=== PATIENT | female | born 1990 | race Caucasian/White ===

== ENCOUNTER 2017-01-23 10:30 | Emergency (ER) | payer BC ==
[~2017-01-23] VITALS: Ht 157.5 cm; Wt 52.5 kg
[2017-01-23 10:32] VITALS: Ht 157.5 cm; Wt 52.5 kg
[2017-01-23] MEDS ORDERED: ONDANSETRON 4 MG INJ IV STA (11:08)
[2017-01-23] MEDS ORDERED: SOD CHLORIDE 0.9% 1,000 ML IV STA (11:08)
--- NOTE | 2017-01-23 11:56 | ERD ---
ER Documentation Chief Complaint Chief Complaint VOMITING X 10 HRS HPI 27-year-old female comes in with a 10 hour history nausea, vomiting, diarrhea and cramping abdominal pain. Patient describes up to 10 episodes of nausea vomiting that was nonbloody nonbilious. She reports diffuse cramping abdominal pain with diarrhea. She took Tylenol for the pain, and does not report any fevers. There is no history of travel with this. ROS All systems reviewed and are negative except as per history of present illness. Medications Home Meds Active Scripts Famotidine* (Famotidine*) 20 Mg Tablet, 20 MG PO BID, #10 TAB Prov:ALYSE DOMINIQUE PA-C 01/23/17 Dicyclomine Hcl* (Bentyl*) 10 Mg Capsule, 10 MG PO QID, #15 CAP Prov:ALYSE DOMINIQUE PA-C 01/23/17 Ondansetron (Ondansetron Odt) 4 Mg Tab.rapdis, 4 MG PO Q6H Y for NAUSEA AND/OR VOMITING, #10 TAB Prov:ALYSE DOMINIQUE PA-C 01/23/17 PMhx/Soc Medical and Surgical Hx: pt denies Medical Hx, pt denies Surgical Hx Hx Alcohol Use: No Hx Substance Use: No Hx Tobacco Use: No Physical Exam Vitals Vital Signs Date Time Temp Pulse Resp B/P Pulse Ox O2 Delivery O2 Flow Rate FiO2 01/23/17 10:32 98.1 58 20 112/70 99 Physical Exam General: Well-developed, well-nourished. The patient appears in no acute distress. HEENT: Head is normocephalic, atraumatic. No scleral icterus. Neck: Supple. Nontender. Lungs: Clear to auscultation. Normal air movement. Heart: Regular rate and rhythm. S1 and S2 are normal. No murmurs, gallops, or rubs. Abdomen: Soft, nontender, nondistended. Bowel sounds are normoactive. Extremities: No clubbing or cyanosis. Normal pulses. Moving extremities x 4. No weakness. Neurologic: Alert and oriented 3. No focal deficits. Skin: Normal turgor. No rash or lesions. Result Diagram: 01/23/17 1125 01/23/17 1125 Results 24 hrs Laboratory Tests Test 01/23/17 11:25 White Blood Count 14.210^3/ul Red Blood Count 4.7310^6/ul Hemoglobin 14.7g/dl Hematocrit 43.0% Mean Corpuscular Volume 90.9fl Mean Corpuscular Hemoglobin 31.1pg Mean Corpuscular Hemoglobin Concent 34.2g/dl Red Cell Distribution Width 12.0% Platelet Count 21219^3/UL Mean Platelet Volume 9.9fl Neutrophils % 83.5% Lymphocytes % 10.3% Monocytes % 5.5% Eosinophils % 0.0% Basophils % 0.4% Nucleated Red Blood Cells % 0.0/100WBC Neutrophils # 11.910^3/ul Lymphocytes # 1.510^3/ul Monocytes # 0.810^3/ul Eosinophils # 0.010^3/ul Basophils # 0.110^3/ul Nucleated Red Blood Cells # 0.010^3/ul Urine Color YELLOW Urine Clarity SLIGHTLY CLOUDY Urine pH 5.0 Urine Specific [place] 1.035 Urine Ketones 2+mg/dL Urine Nitrite NEGATIVEmg/dL Urine Bilirubin NEGATIVEmg/dL Urine Urobilinogen NEGATIVEmg/dL Urine Leukocyte Esterase NEGATIVELeu/ul Urine Microscopic RBC 3/HPF Urine Microscopic WBC 2/HPF Urine Squamous Epithelial Cells MANY/HPF Urine Bacteria FEW/HPF Urine Mucus MODERATE/HPF Urine Hemoglobin NEGATIVEmg/dL Urine Glucose NEGATIVEmg/dL Urine Total Protein 1+mg/dl Sodium Level 141mmol/L Potassium Level 3.8mmol/L Chloride Level 100mmol/L Carbon Dioxide Level 25mmol/L Anion Gap 20 Blood Urea Nitrogen 15mg/dl Creatinine 0.92mg/dl Glucose Level 99mg/dl Calcium Level 10.1mg/dl Total Bilirubin 0.7mg/dl Direct Bilirubin 0.00mg/dl Indirect Bilirubin 0.7mg/dl Aspartate Amino Transf (AST/SGOT) 29IU/L Alanine Aminotransferase (ALT/SGPT) 50IU/L Alkaline Phosphatase 77IU/L Total Protein 8.8g/dl Albumin 5.2g/dl Globulin 3.60g/dl Albumin/Globulin Ratio 1.44 Lipase 233U/L Serum HCG, Qualitative NEGATIVE Current Medications Medications (Trade) Dose Ordered Sig/Chris Route PRN Reason Start Time Stop Time Status Last Admin Dose Admin Sodium Chloride (NS) 1,000 ml @ 1,000 mls/hr Q1H STAT IV 01/23/17 11:08 01/23/17 12:07 DC 01/23/17 11:29 Ondansetron HCl (Zofran Inj) 4 mg ONCE STAT IV 01/23/17 11:08 01/23/17 11:11 DC 01/23/17 11:29 Procedures/MDM 27 year old female, comes in with nausea, vomiting and diarrhea, patient was given IV fluids, Zofran and is feeling significantly better. Patient's symptoms are most likely self-limiting, gastroenteritis. There is mild leukocytosis of 14.7, associated with vomiting and diarrhea. She does not have any clinical signs of acute appendicitis including McBurney's tenderness or rebound pain. She has diffuse pain as colicky with diarrhea, which treated in emergency department feeling much better. Urine is negative for , infection. No electric abnormalities and she is stable for discharge. Departure Diagnosis: Primary Impression: Vomiting and diarrhea Condition: ALYSE Alberto PA-C Jan 23, 2017 11:56
[2017-01-23 12:15] LABS: BASOPHIL # 0.1 10^3/ul (0.0-0.1); BASOPHILS % 0.4 % (0.0-2.0); HEMOGLOBIN 14.7 g/dl (12.0-16.0); LYMPHOCYTES # 1.5 10^3/ul (0.8-2.9); LYMPHOCYTES % 10.3 % (15.0-51.0); MEAN CORPUSCULAR HEMOGLOBIN 31.1 pg (29.0-33.0); MEAN CORPUSCULAR HGB CONC 34.2 g/dl (32.0-37.0); MEAN CORPUSCULAR VOLUME 90.9 fl (82.0-101.0); MEAN PLATELET VOLUME 9.9 fl (7.4-10.4); MONOCYTE # 0.8 10^3/ul (0.3-0.9); MONOCYTES % 5.5 % (0.0-11.0); NEUTROPHIL # 11.9 10^3/ul (1.6-7.5); NEUTROPHILS % 83.5 % (39.0-77.0); PLATELET COUNT 339 10^3/UL (140-415); RED BLOOD COUNT 4.73 10^6/ul (4.20-5.40); WHITE BLOOD COUNT 14.2 10^3/ul (4.8-10.8)
[2017-01-23 12:16] LABS: ADD UMIC YES; UR ASCORBIC ACID NEGATIVE (NEGATIVE); UR BACTERIA FEW /HPF (NONE SEEN); UR BILIRUBIN (Dip) NEGATIVE (NEGATIVE); UR BLOOD (Dip) NEGATIVE (NEGATIVE); UR CLARITY SLIGHTLY CLOUDY (CLEAR); UR COLOR YELLOW (YELLOW); UR GLUCOSE (Dip) NEGATIVE (NEGATIVE); UR KETONES (Dip) 2+ mg/dL (NEGATIVE); UR LEUKOCYTE ESTERASE (Dip) NEGATIVE Leu/ul (NEGATIVE); UR MUCUS MODERATE /HPF (NONE SEEN); UR NITRITE (Dip) NEGATIVE (NEGATIVE); UR RBC 3 /HPF (0-5); UR SPECIFIC GRAVITY (Dip) 1.035 (1.003-1.030); UR SQUAMOUS EPITHELIAL CELL MANY /HPF (FEW); UR TOTAL PROTEIN (Dip) 1+ mg/dl (NEGATIVE); UR UROBILINOGEN (Dip) NEGATIVE (NEGATIVE)
[2017-01-23 12:31] LABS: ALBUMIN 5.2 g/dl (3.3-4.9); ALBUMIN/GLOBULIN RATIO 1.44; BILIRUBIN,INDIRECT 0.7 mg/dl (0-1.1); BILIRUBIN,TOTAL 0.7 mg/dl (0.2-1.3); CALCIUM 10.1 mg/dl (8.4-10.2); CREATININE 0.92 mg/dl (0.44-1.00); POTASSIUM 3.8 mmol/L (3.5-5.1); TOTAL PROTEIN 8.8 g/dl (6.1-8.1)
[2017-01-23] MEDS ORDERED: DICY10CA60 PO (12:36)
[2017-01-23] MEDS ORDERED: FAMO20TA18 PO (12:36)
[2017-01-23] MEDS ORDERED: ONDA4TAB14 PO (12:36)
== END 2017-01-23 13:14 | disposition home or self-care (01) ==
LOC: FTE 10:30
DX: R11.10 Vomiting, unspecified (principal); R19.7 Diarrhea, unspecified
CPT/HCPCS: 36415; 80053; 81001; 83690; 84703; 85025; 96374; 99284; J2405; J7030